=== PATIENT | female | born 1980 | race Caucasian/White ===

== ENCOUNTER 2017-08-18 13:14 | Emergency (ER) | payer BC ==
[~2017-08-18] VITALS: Ht 167.6 cm; Wt 107.0 kg
[2017-08-18] MEDS ORDERED: CELEXA20 MG PO (13:29)
[2017-08-18] MEDS ORDERED: PROBIOTIC1 EAC1 PO (13:29)
[2017-08-18] MEDS ORDERED: UNICOMPLEX M TA1 TA1 PO (13:29)
[2017-08-18 14:13] LABS: URINE BLOOD NEGATIVE (Negative); URINE COLOR YELLOW; URINE GLUCOSE-RANDOM* NEGATIVE (Negative); URINE KETONES 3+ (Negative); URINE LEUKOCYTES-REFLEX NEGATIVE (Negative); URINE NITRITE-REFLEX NEGATIVE (Negative); URINE PROTEIN (DIPSTICK) NEGATIVE (Negative); URINE SPECIFIC GRAVITY >= 1.030 (1.005-1.035); URINE UROBILINOGEN 0.2 E.U./dl (0.2-1.0)
[2017-08-18 14:14] LABS: ABSOLUTE NEUTROPHILS 7.8 thou/uL (1.4-8.2); BASOPHILS 0.5 % (0.0-2.0); EOSINOPHILS 1.3 % (0.0-3.0); HEMATOCRIT 38.2 % (37.0-47.0); HEMOGLOBIN 12.9 gm/dL (12.0-15.0); LYMPHOCYTES 13.5 % (24.0-44.0); MCH 28.6 pg (26.0-34.0); MCHC 33.7 g/dL (28.0-37.0); MCV 84.8 fL (80.0-100.0); MONOCYTES 7.9 % (1.0-8.0); PLATELET COUNT 323 thou/uL (150-400); POLYS 76.8 % (36.0-66.0); RBC 4.51 mil/uL (4.20-5.00); RDW 13.7 % (10.5-14.5); WBC 10.1 thou/uL (4.0-11.0)
[2017-08-18 14:17] LABS: URINE BILIRUBIN NEGATIVE (Negative); URINE CLARITY SL HAZY; URINE REDUCING SUBSTANCE NEGATIVE
[2017-08-18 14:18] LABS: CALCIUM 8.5 mg/dL (8.5-10.1); CREATININE 0.7 mg/dL (0.6-1.0); POTASSIUM 3.5 mmol/L (3.5-5.1)
[2017-08-18 14:24] LABS: ALBUMIN 3.7 g/dL (3.4-5.0); TOTAL BILIRUBIN 0.5 mg/dL (<0.1-1.0); TOTAL PROTEIN 7.4 g/dL (6.4-8.2)
[2017-08-18] MEDS ORDERED: NORCO 5-325 TA1 EACH PO (16:37)
[2017-08-18] MEDS ORDERED: ZOFRAN ODT4 MG PO (16:37)
[2017-08-18] MEDS ORDERED: SENNA-DOCUSATE1 EACH PO (16:37)
[2017-08-18] MEDS ORDERED: IBUPROFEN 600600 M1 PO (16:37)
[2017-08-18 16:43] VITALS: BP 123/69
== END 2017-08-18 16:44 | disposition home or self-care (01) ==
LOC: ER 13:14
PROVIDERS: Emergency Medicine
DX: K80.20 Calculus of gallbladder without cholecystitis without obstruction (principal); K80.70 Calculus of gallbladder and bile duct without cholecystitis without obstruction; J45.909 Unspecified asthma, uncomplicated; Z88.1 Allergy status to other antibiotic agents

== ENCOUNTER 2017-09-06 05:23 | Day surgery (SDC) | payer BC ==
[~2017-09-06] VITALS: Ht 167.6 cm; Wt 106.2 kg
--- NOTE | ~2017-09-06 | PATH ---
[facility] [address] [place] [address] PATHOLOGY RPT PROCEDURE Name: MARTÍN GOLDEN Yovana Room #: DEP [facility].#: [id number] Admission: 09/06/17 Date of : 82 Discharge: 09/06/17 Report #: [id number] Path Case #: [id number] [facility] Accession Number: [id number] . 01 Material submitted: . GALLBLADDER . 02 Diagnosis: "Gallbladder", cholecystectomy: - Chronic cholecystitis. - Cholelithiasis. (CLW:pit; 09/07/2017) QTP/09/07/2017 . 02 Electronically signed: . Sammie Jefferson MD, Pathologist NPI- [id number] . 01 Gross description: . Received in formalin labeled "Martín Golden, gallbladder" and consists of a previously opened gallbladder (6.0 cm in length by 3.5 cm in diameter). The serosa is glistening. The wall averages 0.3 cm thick. The mucosa is brown and diffusely finely granular. Also within the container are several nodular green calculi averaging 0.5 cm each and aggregating to 1.5 x 1.0 x 0.5 cm. (SHARATH; 09/06/2017) JBR/JBR . 02 Pathologist provided ICD-10: K80.10 . 02 CPT . 714109 Performed at: [address], [place] [id number] MD Will Lala MD Phone: [phone] Performed at: [address] [id number] MD Rachel Coronel MD Phone: [phone]
[~2017-09-06 05:23] MED LIST: CELEXA20 MG PO; FLONASE 0.05%50 MCG NASAL; IBUPROFEN 600600 M1 PO; NORCO 5-325 TA1 EACH PO; PROBIOTIC1 EAC1 PO; SENNA-DOCUSATE1 EACH PO; UNICOMPLEX M TA1 TA1 PO; ZOFRAN ODT4 MG PO; ZYRTEC10 MG PO
[2017-09-06 07:10] VITALS: BP 128/75
[2017-09-06] MEDS ORDERED: ONDANSETRON HCL4 M2 PO (08:59)
[2017-09-06] MEDS ORDERED: HYDROCODONE-AP1 EAC6 PO (08:59)
[2017-09-06 09:20] VITALS: BP 128/75
== END 2017-09-06 10:50 | disposition home or self-care (01) ==
LOC: TBA 05:23 → OR 05:23
DX: K80.10 Calculus of gallbladder with chronic cholecystitis without obstruction (principal); J45.909 Unspecified asthma, uncomplicated; K21.9 Gastro-esophageal reflux disease without esophagitis; F32.9 Major depressive disorder, single episode, unspecified; F41.9 Anxiety disorder, unspecified; Z98.890 Other specified postprocedural states; Z79.899 Other long term (current) drug therapy; Z87.891 Personal history of nicotine dependence; Z88.8 Allergy status to other drugs, medicaments and biological substances; Z79.891 Long term (current) use of opiate analgesic
CPT/HCPCS: 50010; 50101; 50249; 50411; 50558; 51975; 52265; 53310; 54022; 54118; 56525; 56526; 56632; 56641; 57006; 57130; 57131; 62110; 62900; 70005